=== PATIENT | female | born 1990 | race Caucasian/White ===

== ENCOUNTER 2017-04-03 08:20 | Observation (INO) | payer BC, OTHER ==
[2017-04-03 08:23] VITALS: BMI 31.5
[2017-04-03 08:41] LABS: BASOPHILS % (AUTO) 0.2 % (0.2-1.0); EOSINOPHILS % (AUTO) 0.2 % (0.9-2.9); HEMATOCRIT 36.8 % (36.0-47.0); HEMOGLOBIN 12.6 g/dL (12.0-16.0); LYMPHOCYTES # (AUTO) 0.8 X10^3/uL (1.3-2.9); LYMPHOCYTES % (AUTO) 8.2 % (21.0-51.0); MEAN CORPUSCULAR HEMOGLOBIN 29.3 pg (27.0-34.0); MEAN CORPUSCULAR HGB CONC 34.3 g/dL (33.0-35.0); MEAN CORPUSCULAR VOLUME 85.4 fL (80.0-100.0); MEAN PLATELET VOLUME 8.5 fL (7.4-11.0); MONOCYTES # (AUTO) 0.6 x10^3/uL (0.3-0.8); MONOCYTES % (AUTO) 5.8 % (0.0-13.0); NEUTROPHILS # (AUTO) 8.2 x10^3/uL (2.2-4.8); NEUTROPHILS % (AUTO) 85.6 % (42.0-75.0); PLATELET COUNT 226 X10^3/uL (150.0-450.0); RED BLOOD COUNT 4.31 X10^6/uL (3.5-5.4); RED CELL DISTRIBUTION WIDTH 12.8 % (11.6-16.5); WHITE BLOOD COUNT 9.6 X10^3/uL (3.6-10.0)
--- NOTE | 2017-04-03 08:42 | DR.GENAD ---
HPI - PCP Primary Care Physician: HALIMA TONG - HPI Comment HPI Comment: LOWER BADOMINAL PAIN RADIATING TO ENTIRE ABDOMEN SINCE AFTER EATING DINNER LAST NIGHT. NAUSEA, VOMITED TIMES ONE. NO FEVER OR DYSURIA. PATIENT IS 19WEEKS . NO VAGINAL BLEEDING. - Complaint/Symptoms Chief Complaint Doctors Comments: ABDOMINAL PAIN. Chief Complaint:: PATIENT STATED THAT SHE ATE SUPPER LAST NIGHT AND NOW IS HAVING SEVERE ABD. PAIN THAT IS ALL OVER AND HAS ALSO HAD NAUSEA AND VOMITING ALONG WITH THE PAIN. PATIENT IS 18 WEEKS OB WITH FHT OF 152 BMP. - Nurses notes reviewed Nurses Notes Review: Yes - Source History Provided: Patient - Mode of Arrival Mode of Arrival: Ambulatory - Timing Onset of Chief Complaint: 04/02/17 Came on: Suddenly - Duration Duration: Constant Duration: Hours - Severity Severity: Moderate PMH - PMH Past Medical History: No Past Surgical History: Yes Surgical History: Other - Family History History of Family Medical Conditions: Yes Family Medical History: [place], Hypertension - Social History Does patient currently use any type of tobacco product: No Have you used tobacco products in the last 12 months: No Type of Tobacco Use: None Does any household member use tobacco: No Alcohol Use: None Do you use any recreational Drugs:: No Lives With: Significant Other Lives Where: Home - infectious screening In the last 2 months have you had wt loss of >10#?: NO Have you had fever, night sweats or hemotysis?: No Have you traveled outside the country in the last 6 months?: No Isolation: Standard ROS - Review of Systems Constitutional: No Symptoms Reported Eyes: No Symptoms Reported ENTM: No Symptoms Reported Respiratoy: No Symptoms Reported Cardiovascular: No Symptoms Reported Gastrointestinal/Abdominal: Abdominal Pain, Nausea, Vomiting Genitourinary: No Symptoms Reported Neurological: No Symptoms Reported Musculoskeletal: No Symptoms Reported Integumentary: No Symptoms Reported Endocrine: No Symptoms Reported All Other Systems: Reviewed and Negative PE - Vital Signs Vitals: Temperature 97.8 F Pulse Rate 97 Respiratory Rate 20 Blood Pressure 139/96 O2 Sat by Pulse Oximetry 97 - General Limitations: No Limitations General Appearance: Alert - Head Head Exam: Normal Inspection - Eyes Eye exam: Normal Appearance - ENT ENT Exam: Normal External Ear Exam External Ear Exam: Normal External Inspection TM/Canal Exam: Bilateral Normal Nose Exam: Normal Nose Exam Mouth Exam: Normal Inspection Throat Exam: Normal Inspection - Neck Neck Exam: Trachea Midline - Chest Chest Inspection: Symmetric Chest Wall Rise - Respiratory Respiratory Exam: Normal Lung Sounds Bilat Respiratory Exam: Bilateral Clear to Auscultation - Cardiovascular Cardiovascular Exam: Regular Rate, Normal Rhythm, Normal Heart Sounds - Abdominal Exam Abdominal Exam: Normal Bowel Sounds, Soft, Tenderness Abdominal Tenderness: RLQ, Diffuse - Extremities Extremities Exam: Normal Inspection - Back Back Exam: Normal Inspection - Neurologic Neurological Exam: Alert, Oriented X3 - Psychiatric Psychiatric Exam: Anxious - Skin Skin Exam: Normal Color MDM - Additional Information Additional Information Obtained From: Family - Differential Diagnosis Differential Diagnosis: RLQ ABDOMINAL PAIN. 18 WKS OB, UTI Course - Treatment Treatment: SEE ORDERS. - Consultation Consultation Comments: DISCUSS PATIENT WITH DR. ORTIZ, SURGEON AND DR. QUINONES OB. DR. QUINONES WILL ADMIT PATIENT. SURGEY CONSULT TO CONTINUE. - Education/Counseling Education/Counseling: Patient, Family, Education Educated On: Diagnosis ROR - Labs Reviewed Laboratory Results Reviewed?: Yes Result Diagrams: 04/03/17 08:35 04/03/17 08:35 Laboratory: WBC 9.6 X10^3/uL (3.6-10.0) 04/03/17 08:35 RBC 4.31 X10^6/uL (3.5-5.4) 04/03/17 08:35 Hgb 12.6 g/dL (12.0-16.0) 04/03/17 08:35 Hct 36.8 % (36.0-47.0) 04/03/17 08:35 MCV 85.4 fL (80.0-100.0) 04/03/17 08:35 MCH 29.3 pg (27.0-34.0) 04/03/17 08:35 MCHC 34.3 g/dL (33.0-35.0) 04/03/17 08:35 RDW 12.8 % (11.6-16.5) 04/03/17 08:35 Plt Count 226 X10^3/uL (150.0-450.0) 04/03/17 08:35 MPV 8.5 fL (7.4-11.0) 04/03/17 08:35 Neut % 85.6 % (42.0-75.0) H 04/03/17 08:35 Lymph % 8.2 % (21.0-51.0) L 04/03/17 08:35 [place] % 5.8 % (0.0-13.0) 04/03/17 08:35 Eos % 0.2 % (0.9-2.9) L 04/03/17 08:35 Baso % 0.2 % (0.2-1.0) 04/03/17 08:35 Neut # 8.2 x10^3/uL (2.2-4.8) H 04/03/17 08:35 Lymph # 0.8 X10^3/uL (1.3-2.9) L 04/03/17 08:35 [place] # 0.6 x10^3/uL (0.3-0.8) 04/03/17 08:35 Eos # 0.0 x10^3/uL (0.0-0.2) 04/03/17 08:35 Baso # 0.0 X10^3/uL (0.0-0.1) 04/03/17 08:35 Absolute Nucleated RBC 0.0 /100WBC 04/03/17 08:35 Sodium 137 mmol/L (136-145) 04/03/17 08:35 Corrected Sodium TNP 04/03/17 08:35 Potassium 3.8 mmol/L (3.5-5.1) 04/03/17 08:35 Chloride 103 mmol/L (98-107) 04/03/17 08:35 Carbon Dioxide 22.5 mmol/L (21-32) 04/03/17 08:35 BUN 5 mg/dL (7-18) L 04/03/17 08:35 Creatinine 0.55 mg/dL (0.55-1.02) 04/03/17 08:35 Est GFR (MDRD) Af Amer > 60 (>60) 04/03/17 08:35 Est GFR (MDRD) Non-Af > 60 (>60) 04/03/17 08:35 Glucose 91 mg/dL (65-99) 04/03/17 08:35 Calcium 9.2 mg/dL (8.5-10.1) 04/03/17 08:35 Corrected Calcium 9.9 mg/dL (8.5-10.1) 04/03/17 08:35 Total Bilirubin 0.30 mg/dL (0.2-1.0) 04/03/17 08:35 AST 15 Units/L (15-37) 04/03/17 08:35 ALT 15 Units/L (12-78) 04/03/17 08:35 Alkaline Phosphatase 54 Units/L (46-116) 04/03/17 08:35 Total Protein 7.8 g/dL (6.4-8.2) 04/03/17 08:35 Albumin 3.1 g/dL (3.4-5.0) L 04/03/17 08:35 Globulin 4.7 g/dL (2.5-4.5) H 04/03/17 08:35 Albumin/Globulin Ratio 0.7 Ratio (1.1-2.1) L 04/03/17 08:35 Amylase 55 Units/L (25-115) 04/03/17 08:35 Lipase 75 Units/L (73-393) 04/03/17 08:35 Specimen Type Clean catch urine 04/03/17 08:34 Urine Color Yellow (YELLOW) 04/03/17 08:34 Urine Appearance Clear (CLEAR) 04/03/17 08:34 Urine pH 7.0 (5.0 - 8.0) 04/03/17 08:34 Ur Specific [place] 1.015 (1.000-1.030) 04/03/17 08:34 Urine Protein Negative (NEGATIVE) 04/03/17 08:34 Urine Glucose (UA) Negative (NEGATIVE) 04/03/17 08:34 Urine Ketones 2+ (NEGATIVE) 04/03/17 08:34 Urine Occult Blood Negative (NEGATIVE) 04/03/17 08:34 Urine Nitrite Negative (NEGATIVE) 04/03/17 08:34 Urine Bilirubin Negative (NEGATIVE) 04/03/17 08:34 Urine Urobilinogen Normal (NORMAL) 04/03/17 08:34 Ur Leukocyte Esterase Negative (NEGATIVE) 04/03/17 08:34 Urine RBC 0-1 /HPF (NEGATIVE) 04/03/17 08:34 Urine WBC 0-1 /HPF (NEGATIVE) 04/03/17 08:34 Ur Squamous Epith Cells Many /HPF (NEGATIVE) 04/03/17 08:34 Urine Bacteria Trace /HPF (NEGATIVE) 04/03/17 08:34 Ur Culture Indicated? No/not indicated 04/03/17 08:34 - XRAY XRAY Interpreted by: Radiologist (REPORT DISCUSS WITH PATIENT AND FAMILY.) - Diagnosis Discharge Problem: Abdominal pain Qualifiers: Abdominal location: right lower quadrant Qualified Code(s): R10.31 - Right lower quadrant pain Qualifiers: Weeks of gestation: 18 weeks Qualified Code(s): Z3A.18 - 18 weeks gestation of - Discharge Plan Disposition: ADMITTED INPATIENT Condition: Stable - Follow ups/Referrals - Instructions
[2017-04-03 08:51] LABS: BILIRUBIN,URINE NEGATIVE (NEGATIVE); BLOOD/HEMOGLOBIN,URINE NEGATIVE (NEGATIVE); GLUCOSE, URINE NEGATIVE (NEGATIVE); KETONES,URINE 2+ (NEGATIVE); LEUKOCYTE ESTERASE ,URINE NEGATIVE (NEGATIVE); NITRITES,URINE NEGATIVE (NEGATIVE); PROTEIN,URINE NEGATIVE (NEGATIVE); UROBILINOGEN,URINE NORMAL (NORMAL)
[2017-04-03 09:01] LABS: APPEARANCE,URINE CLEAR (CLEAR); BACTERIA,URINE TRACE /HPF (NEGATIVE); COLOR,URINE YELLOW (YELLOW); RBC,URINE 0-1 /HPF (NEGATIVE); SQUAMOUS EPITHELIAL CELL,UR MANY /HPF (NEGATIVE)
[2017-04-03 09:01] LABS: ALANINE AMINOTRANSFERASE 15 Units/L (12-78); ALBUMIN 3.1 g/dL (3.4-5.0); ALKALINE PHOSPHATASE 54 Units/L (46-116); AMYLASE 55 Units/L (25-115); ASPARTATE AMINO TRANSFERASE 15 Units/L (15-37); BLOOD UREA NITROGEN 5 mg/dL (7-18); CALCIUM 9.2 mg/dL (8.5-10.1); CARBON DIOXIDE 22.5 mmol/L (21-32); CHLORIDE 103 mmol/L (98-107); COR CA(FOR HYPOALB) 9.9 mg/dL (8.5-10.1); CREATININE 0.55 mg/dL (0.55-1.02); LIPASE 75 Units/L (73-393); SODIUM 137 mmol/L (136-145); TOTAL PROTEIN 7.8 g/dL (6.4-8.2); eGFR BLACK RACES > 60 (>60); eGFR NON BLACK RACES > 60 (>60)
[2017-04-03] MEDS ORDERED: NS 1000 ML 1,000 ML IV SCH (10:00)
--- NOTE | 2017-04-03 10:16 | US ---
HISTORY: Nausea, vomiting, abdominal pain Study: OB ultrasound greater than 14 weeks Comparison: None Technique: Multiple grayscale and color flow Doppler images of the pelvis were obtained with focused evaluation of the fetus. Findings: A single living intrauterine gestation is identified with heart tones of 150 beats per minute. A transverse presentation is observed. The placenta is posterior. Amniotic fluid appears grossly nor mal. Detailed anatomic screening was not performed. Four-chamber heart and three-vessel cord in sertion was seen. The spine appeared normal. Value (cm) Estimated Gestational Age BPD 4.1 18 weeks 3 days HC 14.63 17 weeks 6 days AC 11.46 17 weeks 2 days FL 2.83 18 weeks 5 days Average age by ultrasound: 18 weeks 1 day LELAND by ultrasound: 09/03/2017 Estimated weight: 216 g IMPRESSION: Single living intrauterine gestation as detailed above measuring 18 weeks 1 day with heart rate 150 bpm. No sonographic abnormalities identified. Reported By:
[2017-04-03 10:24] LABS: HCG,QUANTITATIVE 12934 mIU/mL (0-6)
[2017-04-03] MEDS ORDERED: TORADOL 60 MG VIAL IM ONE (10:35)
[2017-04-03] MEDS ORDERED: ZOFRAN INJ 4 MG VIAL IVP ONE ×2 (10:52→14:03)
[2017-04-03] MEDS ORDERED: ZOFRAN INJ 4 MG VIAL ONE ×2 (10:54→15:40)
[2017-04-03] MEDS ORDERED: DILAUDID INJ IVP ONE ×3 (11:31→17:35)
[2017-04-03] MEDS ORDERED: TYLENOL 325 MG TAB PO PRN (12:27)
[2017-04-03] MEDS ORDERED: NULYTELY or GO-LYTELY PO SCH (13:00)
[2017-04-03] MEDS ORDERED: DILAUDID INJ ONE (14:15)
[2017-04-03] MEDS ORDERED: NORCURON INJ 10 MG VIAL ONE (15:40)
[2017-04-03] MEDS ORDERED: SUPRANE IN ONE (15:40)
[2017-04-03] MEDS ORDERED: ROBINUL ONE (15:40)
[2017-04-03] MEDS ORDERED: NEOSTIGMINE INJ ONE (15:40)
[2017-04-03] MEDS ORDERED: DIPRIVAN VIAL ONE (15:40)
[2017-04-03] MEDS ORDERED: QUELICIN (OR ANECTINE) ONE (15:40)
[2017-04-03] MEDS ORDERED: XYLOCAINE 2 % (PLAIN) ONE (15:40)
[2017-04-03] MEDS: NS 1000 ML 1,000 ML IV SCH ×3 (15:58→22:26)
[2017-04-03 18:00] LABS: BASOPHILS % (AUTO) 0.3 % (0.2-1.0); EOSINOPHILS % (AUTO) 0.3 % (0.9-2.9); HEMOGLOBIN 10.8 g/dL (12.0-16.0); LYMPHOCYTES # (AUTO) 0.9 X10^3/uL (1.3-2.9); LYMPHOCYTES % (AUTO) 14.2 % (21.0-51.0); MEAN CORPUSCULAR HEMOGLOBIN 29.9 pg (27.0-34.0); MEAN CORPUSCULAR HGB CONC 34.8 g/dL (33.0-35.0); MEAN PLATELET VOLUME 8.8 fL (7.4-11.0); MONOCYTES # (AUTO) 0.6 x10^3/uL (0.3-0.8); MONOCYTES % (AUTO) 9.9 % (0.0-13.0); NEUTROPHILS # (AUTO) 4.8 x10^3/uL (2.2-4.8); NEUTROPHILS % (AUTO) 75.3 % (42.0-75.0); PLATELET COUNT 190 X10^3/uL (150.0-450.0); RED BLOOD COUNT 3.61 X10^6/uL (3.5-5.4); RED CELL DISTRIBUTION WIDTH 12.8 % (11.6-16.5); WHITE BLOOD COUNT 6.3 X10^3/uL (3.6-10.0)
[2017-04-03] MEDS: ROCEPHIN 1 GM IV PREMIX 1 GM/50 ML IV.SOLN. IV SCH (19:12)
[2017-04-03] MEDS ORDERED: MARCAINE 0.25% INJ ONE (19:32)
[2017-04-03] MEDS ORDERED: NS 1000 ML 1,000 ML ONE (19:37)
[2017-04-03] MEDS ORDERED: ANCEF 1 GM IV PREMIX* 0 GM/0 ML BAG IV ONE (19:37)
[2017-04-03] MEDS ORDERED: BICITRA 30 ML PO ONE (20:16)
[2017-04-03] MEDS ORDERED: FENTANYL INJ 250 mcg ONE (20:20)
[2017-04-03] MEDS ORDERED: NS IRRIGATION 1000 ML 1,000 ML IR ONE (20:39)
[2017-04-03] MEDS ORDERED: NS IRRIGATION 1000 ML 1,000 ML with BACITRACIN VIAL 50,000 UNT IR ONE ×2 (21:05)
[2017-04-03] MEDS ORDERED: BACITRACIN VIAL ONE (21:09)
[2017-04-03] MEDS ORDERED: BACTROBAN OINT ONE (21:19)
[2017-04-03] MEDS ORDERED: PHENERGAN INJ 25 MG ONE (21:26)
[2017-04-03] MEDS ORDERED: REGLAN INJ 10 MG VIAL IVP PRN (21:28)
[2017-04-03] MEDS ORDERED: BENADRYL INJ 50 MG VIAL IVP PRN (21:28)
[2017-04-03] MEDS ORDERED: PHENERGAN INJ 25 MG IVP PRN (21:28)
[2017-04-03] MEDS ORDERED: DILAUDID INJ IVP PRN ×2 (21:28→21:50)
[2017-04-03] MEDS ORDERED: ZOFRAN INJ 4 MG VIAL IVP PRN (21:28)
--- NOTE | 2017-04-03 21:39 | OR.GENERIC ---
Post-Op Note Generic - Post-Op Note Operative Report: Pst Operative note . Diagnostic Laparoscopy and appendectomy was done . finding Acute suppurative appendecitis . EBL 10 cc will keep NPO IV ATB and IVF and observe .
[2017-04-03] MEDS: D5 1/2 NS 1000 ML 1,000 ML IV SCH (22:25)
[2017-04-04] MEDS ORDERED: DILAUDID INJ ONE (00:12)
[2017-04-04] MEDS: ZOFRAN INJ 4 MG VIAL IVP PRN ×2 (00:20→07:56)
[2017-04-04] MEDS: D5 1/2 NS 1000 ML 1,000 ML IV SCH ×3 (04:14→11:50)
[2017-04-04 05:27] LABS: BASOPHILS % (AUTO) 0.1 % (0.2-1.0); EOSINOPHILS % (AUTO) 0.1 % (0.9-2.9); HEMATOCRIT 30.6 % (36.0-47.0); HEMOGLOBIN 10.6 g/dL (12.0-16.0); LYMPHOCYTES # (AUTO) 0.7 X10^3/uL (1.3-2.9); LYMPHOCYTES % (AUTO) 11.9 % (21.0-51.0); MEAN CORPUSCULAR HGB CONC 34.6 g/dL (33.0-35.0); MEAN CORPUSCULAR VOLUME 86.5 fL (80.0-100.0); MEAN PLATELET VOLUME 9.1 fL (7.4-11.0); MONOCYTES # (AUTO) 0.4 x10^3/uL (0.3-0.8); MONOCYTES % (AUTO) 6.6 % (0.0-13.0); NEUTROPHILS # (AUTO) 4.9 x10^3/uL (2.2-4.8); NEUTROPHILS % (AUTO) 81.3 % (42.0-75.0); PLATELET COUNT 175 X10^3/uL (150.0-450.0); RED BLOOD COUNT 3.53 X10^6/uL (3.5-5.4); RED CELL DISTRIBUTION WIDTH 12.9 % (11.6-16.5); WHITE BLOOD COUNT 6.1 X10^3/uL (3.6-10.0)
[2017-04-04 05:43] LABS: ALANINE AMINOTRANSFERASE 13 Units/L (12-78); ALBUMIN 2.4 g/dL (3.4-5.0); ALKALINE PHOSPHATASE 40 Units/L (46-116); AMYLASE 38 Units/L (25-115); ASPARTATE AMINO TRANSFERASE 14 Units/L (15-37); BLOOD UREA NITROGEN 3 mg/dL (7-18); CALCIUM 8.4 mg/dL (8.5-10.1); CARBON DIOXIDE 20.9 mmol/L (21-32); CHLORIDE 106 mmol/L (98-107); COR CA(FOR HYPOALB) 9.7 mg/dL (8.5-10.1); CREATININE 0.38 mg/dL (0.55-1.02); LIPASE 67 Units/L (73-393); SODIUM 138 mmol/L (136-145); TOTAL PROTEIN 6.3 g/dL (6.4-8.2); eGFR BLACK RACES > 60 (>60); eGFR NON BLACK RACES > 60 (>60)
[2017-04-04] MEDS: NS 1000 ML 1,000 ML IV SCH ×2 (07:01→11:46)
[2017-04-04] MEDS: ROCEPHIN 1 GM IV PREMIX 1 GM/50 ML IV.SOLN. IV SCH (08:12)
[2017-04-04] MEDS ORDERED: PHENERGAN INJ 25 MG IV PRN (09:13)
--- NOTE | 2017-04-04 09:45 | PCM.PROG ---
Progress Note - Progress Note for Day of Date: 04/04/17 - Subjective Subjective: PO kristian ppendectomy day 1. doing much better , still c/o nausea , no vomiting .. abdominal pain is less. CBC mild anemia.. - Past Medical Family Social History Allergies: Allergies [place] No Known Drug Allergy [No Known Drug Allergy] Allergy (Verified 05/25/13 23: 10) - Vital Signs and I&O's Vital Signs: Temperature 98.5 F Pulse Rate [Right Brachial] 94 Pulse Rate 77 Respiratory Rate 20 Blood Pressure [Right Arm] 119/59 Blood Pressure 124/60 O2 Sat by Pulse Oximetry 99 Intake and Output: Intake & Output 04/01/17 04/02/17 04/03/17 04/04/17 11:59 11:59 11:59 11:59 Intake Total 2820 Output Total 1505 Balance 1315 - Physical Exam Auscultation: Bowel Sounds: Normal Tenderness: Diffuse (incisional tenderness , no infection , BS +) Mood Description: Calm Speech Pattern: Clear, Appropriate - Laboratory and Diagnostics Result Diagrams: 04/04/17 04:15 04/04/17 04:15 Labs: Laboratory WBC 6.1 X10^3/uL (3.6-10.0) 04/04/17 04:15 RBC 3.53 X10^6/uL (3.5-5.4) 04/04/17 04:15 Hgb 10.6 g/dL (12.0-16.0) L 04/04/17 04:15 Hct 30.6 % (36.0-47.0) L 04/04/17 04:15 MCV 86.5 fL (80.0-100.0) 04/04/17 04:15 MCH 30.0 pg (27.0-34.0) 04/04/17 04:15 MCHC 34.6 g/dL (33.0-35.0) 04/04/17 04:15 RDW 12.9 % (11.6-16.5) 04/04/17 04:15 Plt Count 175 X10^3/uL (150.0-450.0) 04/04/17 04:15 MPV 9.1 fL (7.4-11.0) 04/04/17 04:15 Neut % 81.3 % (42.0-75.0) H 04/04/17 04:15 Lymph % 11.9 % (21.0-51.0) L 04/04/17 04:15 [place] % 6.6 % (0.0-13.0) 04/04/17 04:15 Eos % 0.1 % (0.9-2.9) L 04/04/17 04:15 Baso % 0.1 % (0.2-1.0) L 04/04/17 04:15 Neut # 4.9 x10^3/uL (2.2-4.8) H 04/04/17 04:15 Lymph # 0.7 X10^3/uL (1.3-2.9) L 04/04/17 04:15 [place] # 0.4 x10^3/uL (0.3-0.8) 04/04/17 04:15 Eos # 0.0 x10^3/uL (0.0-0.2) 04/04/17 04:15 Baso # 0.0 X10^3/uL (0.0-0.1) 04/04/17 04:15 Absolute Nucleated RBC 0.0 /100WBC 04/04/17 04:15 Sodium 138 mmol/L (136-145) 04/04/17 04:15 Corrected Sodium TNP 04/04/17 04:15 Potassium 3.5 mmol/L (3.5-5.1) 04/04/17 04:15 Chloride 106 mmol/L (98-107) 04/04/17 04:15 Carbon Dioxide 20.9 mmol/L (21-32) L 04/04/17 04:15 BUN 3 mg/dL (7-18) L 04/04/17 04:15 Creatinine 0.38 mg/dL (0.55-1.02) L 04/04/17 04:15 Est GFR (MDRD) Af Amer > 60 (>60) 04/04/17 04:15 Est GFR (MDRD) Non-Af > 60 (>60) 04/04/17 04:15 Glucose 93 mg/dL (65-99) 04/04/17 04:15 Calcium 8.4 mg/dL (8.5-10.1) L 04/04/17 04:15 Corrected Calcium 9.7 mg/dL (8.5-10.1) 04/04/17 04:15 Total Bilirubin 0.20 mg/dL (0.2-1.0) 04/04/17 04:15 AST 14 Units/L (15-37) L 04/04/17 04:15 ALT 13 Units/L (12-78) 04/04/17 04:15 Alkaline Phosphatase 40 Units/L (46-116) L 04/04/17 04:15 Total Protein 6.3 g/dL (6.4-8.2) L 04/04/17 04:15 Albumin 2.4 g/dL (3.4-5.0) L 04/04/17 04:15 Globulin 3.9 g/dL (2.5-4.5) 04/04/17 04:15 Albumin/Globulin Ratio 0.6 Ratio (1.1-2.1) L 04/04/17 04:15 Amylase 38 Units/L (25-115) 04/04/17 04:15 Lipase 67 Units/L (73-393) L 04/04/17 04:15 HCG, Quant 29302 mIU/mL (0-6) H 04/03/17 08:35 Specimen Type Clean catch urine 04/03/17 08:34 Urine Color Yellow (YELLOW) 04/03/17 08:34 Urine Appearance Clear (CLEAR) 04/03/17 08:34 Urine pH 7.0 (5.0 - 8.0) 04/03/17 08:34 Ur Specific [place] 1.015 (1.000-1.030) 04/03/17 08:34 Urine Protein Negative (NEGATIVE) 04/03/17 08:34 Urine Glucose (UA) Negative (NEGATIVE) 04/03/17 08:34 Urine Ketones 2+ (NEGATIVE) 04/03/17 08:34 Urine Occult Blood Negative (NEGATIVE) 04/03/17 08:34 Urine Nitrite Negative (NEGATIVE) 04/03/17 08:34 Urine Bilirubin Negative (NEGATIVE) 04/03/17 08:34 Urine Urobilinogen Normal (NORMAL) 04/03/17 08:34 Ur Leukocyte Esterase Negative (NEGATIVE) 04/03/17 08:34 Urine RBC 0-1 /HPF (NEGATIVE) 04/03/17 08:34 Urine WBC 0-1 /HPF (NEGATIVE) 04/03/17 08:34 Ur Squamous Epith Cells Many /HPF (NEGATIVE) 04/03/17 08:34 Urine Bacteria Trace /HPF (NEGATIVE) 04/03/17 08:34 Ur Culture Indicated? No/not indicated 04/03/17 08:34 Influenza Type A (PCR) Negative (NEGATIVE) 04/03/17 11:00 Influenza Type B (PCR) Negative (NEGATIVE) 04/03/17 11:00 Tissue Pathology To follow 04/03/17 21:15 - Plan (1) Acute appendicitis affecting Status: Acute Plan: Pt is PO lap appendectomy . will start on clear liquid and advance to full riley am . could be D/C today. light activities . change dressing in 2 days . f/u in 10 days .
[2017-04-04 13:58] VITALS: BP 114/74
== END 2017-04-04 15:45 | disposition home or self-care (01) ==
LOC: ER 08:26 → MED/SURG 12:25
PROVIDERS: ADMIT Obstetrics & Gynecology Obstetrics; ATTEND Obstetrics & Gynecology Obstetrics
PROC: 0DTJ4ZZ Resection of Appendix, Percutaneous Endoscopic Approach (ICD-10-PCS; principal; 2017-04-03 20:00)
DX: K35.89 Other acute appendicitis (principal); R10.84 Generalized abdominal pain; R10.31 Right lower quadrant pain; Z3A.18 18 weeks gestation of pregnancy; R11.2 Nausea with vomiting, unspecified; O99.612 Diseases of the digestive system complicating pregnancy, second trimester
CPT/HCPCS: 36415; 76815; 80053; 81001; 82150; 83690; 84702; 85025; 87502; 96365; 96374; 99284; A4216; A4222; S0020; G0378; J0330; J0690; J0696; J1170; J2001; J2405; J2550; J2710; J3010; J3490; J7042

== ENCOUNTER → 2017-07-02 | Outpatient (CLI) | payer BC, OTHER | LOC: RAD 10:17 | PROVIDERS: ATTEND Obstetrics & Gynecology | DX: Z36.89 Encounter for other specified antenatal screening (principal) ==

== ENCOUNTER 2019-02-23 06:12 | Inpatient (IN) ==
[2019-02-23] MEDS ORDERED: ANCEF 1 GRAM IV PREMIX* 2 G/100 ML BAG IV ONE (06:29)
[2019-02-23] MEDS ORDERED: LR 1000 ML IV 1,000 ML IV ONE ×3 (06:29→08:02)
[2019-02-23] MEDS ORDERED: ANCEF VIAL 1 GRAM IVP ONE (06:47)
[2019-02-23] MEDS ORDERED: D5 1/2 NS 1000 ML 1,000 ML IV SCH (06:47)
[2019-02-23] MEDS ORDERED: DILAUDID INJ ONE (06:49)
[2019-02-23] MEDS ORDERED: D5 1/2 NS 1L W PITOCIN 20 UNITS/L 20 UNITS/1,000 ML BAG IV ONE ×2 (06:49→17:44)
[2019-02-23] MEDS ORDERED: XYLOCAINE 1 % (PLAIN) ONE (06:52)
[2019-02-23] MEDS ORDERED: DROPERIDOL ONE ×2 (07:05→14:37)
[2019-02-23 07:23] LABS: URIC ACID 3.6 mg/dL (2.6-6.0)
[2019-02-23] MEDS ORDERED: REGLAN INJ 10 MG VIAL IVP PRN ×2 (08:31→09:15)
[2019-02-23] MEDS ORDERED: PHENERGAN INJ 25 MG IM PRN (08:31)
[2019-02-23] MEDS ORDERED: BENADRYL INJ 50 MG VIAL IVP PRN ×2 (08:31→09:15)
[2019-02-23] MEDS ORDERED: ZOFRAN INJ 4 MG VIAL IVP PRN ×2 (08:31→09:15)
[2019-02-23 08:42] LABS: BILIRUBIN,URINE NEGATIVE (NEGATIVE); BLOOD/HEMOGLOBIN,URINE NEGATIVE (NEGATIVE); GLUCOSE, URINE NEGATIVE (NEGATIVE); KETONES,URINE 1+ (NEGATIVE); LEUKOCYTE ESTERASE ,URINE NEGATIVE (NEGATIVE); NITRITES,URINE NEGATIVE (NEGATIVE); PROTEIN,URINE 1+ (NEGATIVE); UROBILINOGEN,URINE NORMAL (NORMAL)
[2019-02-23 08:53] LABS: APPEARANCE,URINE CLEAR (CLEAR); BACTERIA,URINE TRACE /HPF (NEGATIVE); COLOR,URINE YELLOW (YELLOW); RBC,URINE 0-2 /HPF (0-3); SQUAMOUS EPITHELIAL CELL,UR FEW /HPF (NEGATIVE)
[2019-02-23] MEDS ORDERED: MYLICON TAB 80 MG CHEW PO PRN (09:15)
[2019-02-23] MEDS ORDERED: NARCAN INJ IVP PRN (09:15)
[2019-02-23] MEDS ORDERED: ADACEL or BOOSTRIX TDaP VACCINE IM ONE (09:15)
[2019-02-23] MEDS ORDERED: TORADOL 30 MG VIAL IVP PRN (09:15)
[2019-02-23] MEDS ORDERED: PERCOCET TAB 5/325 MG PO PRN (09:15)
[2019-02-23] MEDS ORDERED: NARCAN INJ ONE (09:17)
[2019-02-23] MEDS ORDERED: ZOFRAN INJ 4 MG VIAL ONE ×2 (09:49→14:58)
[2019-02-23] MEDS ORDERED: D5 1/2 NS 1000 ML 1,000 ML with PITOCIN 20 UNITS IV SCH ×2 (10:00)
[2019-02-23] MEDS ORDERED: PHENERGAN INJ 25 MG IM ONE (10:19)
[2019-02-23] MEDS ORDERED: NS IV ONE (14:51)
[2019-02-23] MEDS ORDERED: DROPERIDOL IV ONE (14:51)
[2019-02-23] MEDS ORDERED: REGLAN INJ 10 MG VIAL ONE (14:58)
[2019-02-23] MEDS ORDERED: MARCAINE SPINAL ONE (14:58)
[2019-02-23] MEDS ORDERED: EPHEDRINE SULFATE INJ ONE (14:58)
[2019-02-23] MEDS ORDERED: DIPRIVAN VIAL ONE (14:58)
[2019-02-23] MEDS: NORMODYNE TAB 200 MG PO SCH (21:00)
[2019-02-24 05:21] LABS: HEMATOCRIT 26.4 % (36.0-47.0); HEMOGLOBIN 8.9 g/dL (12.0-16.0)
[2019-02-24] MEDS ORDERED: PERCOCET TAB 5/325 MG PO PRN (07:29)
[2019-02-24] MEDS ORDERED: MOTRIN TAB 800 MG PO PRN (07:29)
[2019-02-24] MEDS ORDERED: DEPO-PROVERA CONTRACEPTIVE INJ IM ONE ×2 (07:29→09:44)
[2019-02-24] MEDS ORDERED: COLACE CAP 100 MG PO SCH (09:00)
[2019-02-24] MEDS ORDERED: PRENATAL PLUS PO SCH (09:00)
[2019-02-24] MEDS: NORMODYNE TAB 200 MG PO SCH (10:04)
[2019-02-24 13:15] VITALS: BP 136/61
[2019-02-24] MEDS ORDERED: BACTROBAN TOPICAL OINT TOP SCH (14:00)
[2019-02-24] MEDS ORDERED: FERROUS GLUCONATE PO SCH (17:00)
== END 2019-02-24 14:00 | disposition home or self-care (01) | DRG 787 ==
LOC: LD 06:12 → MED/SURG 10:31
PROVIDERS: ADMIT Specialist; ATTEND Specialist
DX: Z3A.38 38 weeks gestation of pregnancy; N85.8 Other specified noninflammatory disorders of uterus; O10.013 Pre-existing essential hypertension complicating pregnancy, third trimester; Z37.0 Single live birth; O99.013 Anemia complicating pregnancy, third trimester; D50.8 Other iron deficiency anemias; O34.211 Maternal care for low transverse scar from previous cesarean delivery
CPT/HCPCS: 36415; 81001; 83615; 84450; 84460; 84550; 85014; 85018; 85384; 85610; 85730; A4216; A4222; S0197; J0690; J1050; J1170; J1200; J1790; J1885; J2310; J2405; J2590; J2704; J2765; J3490; J7120; S5010

== ENCOUNTER 2022-04-17 06:38 | Inpatient (IN) ==
[2022-04-17] MEDS ORDERED: D5 1/2 NS 1,000 ML 1,000 ML IV SCH (06:41)
[2022-04-17] MEDS ORDERED: ANCEF VIAL 1 GRAM IVP ONE (06:41)
[2022-04-17] MEDS ORDERED: TORADOL 30 MG VIAL ONE (06:46)
[2022-04-17] MEDS ORDERED: ZOFRAN INJ 4 MG VIAL ONE (06:47)
[2022-04-17] MEDS ORDERED: PEPCID 20 MG VIAL ONE (06:47)
[2022-04-17] MEDS ORDERED: MARCAINE SPINAL ONE (06:47)
[2022-04-17] MEDS ORDERED: PITOCIN ONE (06:47)
[2022-04-17] MEDS ORDERED: DECADRON INJ ONE (06:47)
[2022-04-17] MEDS ORDERED: REGLAN INJ 10 MG VIAL ONE (06:47)
[2022-04-17] MEDS ORDERED: XYLOCAINE 2 % (PLAIN) ONE (06:48)
[2022-04-17] MEDS ORDERED: OFIRMEV IV 1000 MG VIAL 1,000 MG/100 ML VIAL IV ONE (06:48)
[2022-04-17] MEDS ORDERED: EPHEDRINE SULFATE INJ ONE (06:48)
[2022-04-17] MEDS ORDERED: DILAUDID INJ ONE (06:49)
[2022-04-17] MEDS ORDERED: ANCEF VIAL 1 GRAM ONE (06:56)
[2022-04-17] MEDS ORDERED: NS 100 ML IV 100 ML ONE (06:56)
[2022-04-17] MEDS ORDERED: LR 1,000 ML IV 1,000 ML IV ONE ×2 (06:57→07:22)
[2022-04-17] MEDS ORDERED: HESPAN IV IN NS 500 ML IV ONE (08:00)
[2022-04-17] MEDS ORDERED: DIPRIVAN VIAL 20 ML ONE (08:34)
[2022-04-17] MEDS ORDERED: D5 1/2 NS 1,000 mL + PITOCIN 20 UNITS/L IV 20 UNITS/1,000 ML BAG IV ONE (09:03)
[2022-04-17] MEDS ORDERED: ZOFRAN INJ 4 MG VIAL IVP PRN ×2 (09:37→10:38)
[2022-04-17] MEDS ORDERED: DILAUDID INJ IVP PRN (09:37)
[2022-04-17] MEDS ORDERED: BENADRYL INJ 50 MG VIAL IVP PRN ×2 (09:37→10:38)
[2022-04-17] MEDS ORDERED: D5 1/2 NS 1,000 ML 1,000 ML with PITOCIN 20 UNITS IV SCH ×2 (10:38)
[2022-04-17] MEDS ORDERED: ADACEL or BOOSTRIX TDaP VACCINE IM ONE (10:38)
[2022-04-17] MEDS ORDERED: REGLAN INJ 10 MG VIAL IVP PRN (10:38)
[2022-04-17] MEDS ORDERED: TORADOL 30 MG VIAL IVP PRN (10:38)
[2022-04-17] MEDS ORDERED: NARCAN INJ IVP PRN (10:38)
[2022-04-17] MEDS ORDERED: MYLICON TAB 80 MG CHEW PO PRN (10:38)
[2022-04-17] MEDS ORDERED: PERCOCET TAB 5/325 MG PO PRN ×2 (10:38→16:17)
[2022-04-17] MEDS ORDERED: BENADRYL INJ 50 MG VIAL ONE (10:41)
[2022-04-17] MEDS ORDERED: STERILE WATER IRRIGATION IR ONE (14:17)
[2022-04-17] MEDS: FERROUS GLUCONATE PO SCH (16:42)
[2022-04-17] MEDS: MOTRIN TAB 800 MG PO PRN (21:17)
[2022-04-17] MEDS: COLACE CAP 100 MG PO SCH (21:17)
[2022-04-17] MEDS: BACTROBAN TOPICAL OINT TOP SCH (22:30)
[2022-04-18 05:23] LABS: HEMATOCRIT 22.5 % (36.0-47.0)
[2022-04-18 05:32] LABS: HEMOGLOBIN 7.4 g/dL (12.0-16.0)
[2022-04-18] MEDS: BACTROBAN TOPICAL OINT TOP SCH (06:23)
[2022-04-18] MEDS: FERROUS GLUCONATE PO SCH (06:23)
[2022-04-18] MEDS: MOTRIN TAB 800 MG PO PRN (06:26)
[2022-04-18] MEDS ORDERED: NORMODYNE TAB 100 MG PO SCH (09:00)
[2022-04-18] MEDS ORDERED: PREVACID PO SCH (09:00)
[2022-04-18] MEDS ORDERED: PRENATAL PLUS PO SCH (09:00)
[2022-04-18] MEDS: COLACE CAP 100 MG PO SCH (09:09)
[2022-04-18 10:42] VITALS: BP 139/71
== END 2022-04-18 10:22 | disposition home or self-care (01) | DRG 784 ==
LOC: LD 06:38 → MED/SURG 10:37
PROVIDERS: ADMIT Specialist; ATTEND Specialist
DX: O34.211 Maternal care for low transverse scar from previous cesarean delivery; N85.8 Other specified noninflammatory disorders of uterus; O99.013 Anemia complicating pregnancy, third trimester; Z37.0 Single live birth; Z30.2 Encounter for sterilization; Z3A.38 38 weeks gestation of pregnancy; D50.8 Other iron deficiency anemias; O10.013 Pre-existing essential hypertension complicating pregnancy, third trimester

== ENCOUNTER 2024-04-12 10:19 | Observation (INO) ==
[2024-04-12] MEDS: NOZIN NASAL SANITIZER TP ONE (10:52)
[2024-04-12] MEDS: LR 1,000 ML IV 1,000 ML IV ONE (11:00)
[2024-04-12] MEDS: LR 1,000 ML IV 1,200 ML IV PRN (11:05)
[2024-04-12] MEDS: PEPCID 20 MG VIAL IVP PRN (11:05)
[2024-04-12] MEDS: REGLAN INJ 10 MG VIAL IVP PRN (11:05)
[2024-04-12] MEDS: VERSED IVP PRN (11:05)
[2024-04-12] MEDS: ZOFRAN INJ 4 MG VIAL IVP PRN ×2 (11:05→17:38)
[2024-04-12] MEDS: ANCEF VIAL 1 GRAM ONE (11:12)
[2024-04-12] MEDS ORDERED: ULTANE GAS IN ONE (11:12)
[2024-04-12] MEDS ORDERED: PRECEDEX INJ VIAL ONE (11:12)
[2024-04-12] MEDS ORDERED: KETAMINE HCL ONE (11:12)
[2024-04-12] MEDS: NS 100 ML IV 100 ML ONE (11:12)
[2024-04-12] MEDS ORDERED: XYLOCAINE 2 % (PLAIN) ONE (11:12)
[2024-04-12] MEDS: ANCEF VIAL 1 GRAM IV PRN (11:15)
[2024-04-12] MEDS: FENTANYL VIAL INJ 100 mcg IVP PRN (11:17)
[2024-04-12] MEDS: KETAMINE HCL IV PRN (11:17)
[2024-04-12] MEDS: DECADRON INJ IVP PRN (11:25)
[2024-04-12] MEDS: PROPOFOL IVP PRN (11:30)
[2024-04-12] MEDS: POLYMYXIN B SULFATE ONE (11:30)
[2024-04-12] MEDS: EPHEDRINE SULFATE INJ IVP PRN (11:31)
[2024-04-12] MEDS: OFIRMEV IV 1000 MG VIAL 1,000 MG/100 ML VIAL IV PRN (11:41)
[2024-04-12] MEDS: PRECEDEX INJ VIAL IVP PRN (12:07)
[2024-04-12] MEDS: ZEMURON 100 MG VIAL IVP PRN (12:20)
[2024-04-12] MEDS: NEO-SYNEPHRINE INJ IVP PRN (12:34)
[2024-04-12] MEDS: TORADOL 30 MG VIAL IVP PRN (12:34)
[2024-04-12] MEDS: MARCAINE 0.5% ONE (12:39)
[2024-04-12] MEDS: DANTRIUM IVP PRN (12:50)
[2024-04-12] MEDS: BACTROBAN TOPICAL OINT ONE (12:51)
[2024-04-12] MEDS: BRIDION IVP PRN (12:54)
[2024-04-12 13:49] VITALS: BMI 23.5
[2024-04-12] MEDS: DILAUDID INJ ONE (13:51)
[2024-04-12] MEDS: PEPCID 20 MG VIAL ONE (14:47)
[2024-04-12] MEDS: BRIDION ONE (14:47)
[2024-04-12] MEDS: DECADRON INJ ONE (14:47)
[2024-04-12] MEDS: DIPRIVAN VIAL 20 ML ONE ×3 (14:47→14:50)
[2024-04-12] MEDS: REGLAN INJ 10 MG VIAL ONE (14:48)
[2024-04-12] MEDS: FENTANYL VIAL INJ 100 mcg ONE (14:48)
[2024-04-12] MEDS: ZEMURON 100 MG VIAL ONE (14:48)
[2024-04-12] MEDS: ZOFRAN INJ 4 MG VIAL ONE (14:48)
[2024-04-12] MEDS: BARHEMSYS INJ ONE (14:49)
[2024-04-12] MEDS: EPHEDRINE SULFATE INJ ONE (14:49)
[2024-04-12] MEDS: VERSED ONE (14:49)
[2024-04-12] MEDS: NEO-SYNEPHRINE INJ ONE (14:50)
[2024-04-12] MEDS: TORADOL 30 MG VIAL ONE (14:50)
[2024-04-12] MEDS: OFIRMEV IV 1000 MG VIAL 1,000 MG/100 ML VIAL IV ONE (14:50)
[2024-04-12] MEDS: D5 1/2 NS 1,000 ML 1,000 ML IV SCH (15:21)
[2024-04-12] MEDS: DILAUDID INJ IVP PRN (17:39)
[2024-04-13 06:22] LABS: BASOPHILS % (AUTO) 0.1 % (0.2-1.0); HEMATOCRIT 36.5 % (36.0-47.0); HEMOGLOBIN 12.3 g/dL (12.0-16.0); LYMPHOCYTES # (AUTO) 1.3 X10^3/uL (1.3-2.9); LYMPHOCYTES % (AUTO) 15.4 % (21.0-51.0); MEAN CORPUSCULAR HEMOGLOBIN 28.7 pg (27.0-34.0); MEAN CORPUSCULAR HGB CONC 33.8 g/dL (33.0-35.0); MEAN PLATELET VOLUME 8.7 fL (7.4-11.0); MONOCYTES # (AUTO) 0.8 x10^3/uL (0.3-0.8); MONOCYTES % (AUTO) 9.8 % (0.0-13.0); NEUTROPHILS # (AUTO) 6.1 x10^3/uL (2.2-4.8); NEUTROPHILS % (AUTO) 74.7 % (42.0-75.0); PLATELET COUNT 228 X10^3/uL (150.0-450.0); RED BLOOD COUNT 4.29 X10^6/uL (3.5-5.4); RED CELL DISTRIBUTION WIDTH 14.7 % (11.6-16.5); WHITE BLOOD COUNT 8.1 X10^3/uL (3.6-10.0)
[2024-04-13 06:57] LABS: ALANINE AMINOTRANSFERASE 15 Units/L (12-78); ALBUMIN 3.8 g/dL (3.4-5.0); ALKALINE PHOSPHATASE 42 Units/L (46-116); ASPARTATE AMINO TRANSFERASE 11 Units/L (15-37); BLOOD UREA NITROGEN 7 mg/dL (7-18); CHLORIDE 101 mmol/L (98-107); CREATININE 0.91 mg/dL (0.55-1.02); GLUCOSE 91 mg/dL (65-99); POTASSIUM 3.5 mmol/L (3.5-5.1); SODIUM 138 mmol/L (136-145); TOTAL PROTEIN 7.4 g/dL (6.4-8.2); eGFR NON BLACK RACES > 60 (>60)
[2024-04-13 10:26] VITALS: TEMP 98.1
[2024-04-13] MEDS: NORCO 5/325 MG TAB PO PRN (11:30)
[2024-04-13 12:12] VITALS: BP 106/55; PULSE 79; RESP 17; O2SAT 100
== END 2024-04-13 12:45 | disposition home or self-care (01) ==
LOC: MED/SURG 10:19 → SURG1 10:19
PROVIDERS: ADMIT Surgery; ATTEND Surgery
DX: K43.2 Incisional hernia without obstruction or gangrene; R10.31 Right lower quadrant pain